=== PATIENT | male | born 1965 | race Caucasian/White ===

== ENCOUNTER 2018-01-02 14:23 | Inpatient (IN) | payer OTHER ==
[~2018-01-02] VITALS: Ht 175.3 cm; Wt 65.8 kg
--- NOTE | ~2018-01-02 | EKG ---
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1965 Requested By: Robin Partida Order Number: [id number] MD: Álvaro Riley Measurements Intervals [place] Rate: 111 P: 65 GA: 125 QRS: -13 QRSD: 80 T: QT: 385 QTc: 523 Interpretive Statements Sinus tachycardia Nonspecific ST and T wave abnormality Prolonged QT interval No previous ECG available for comparison Electronically Signed On 01-02-2018 17:27:57 CDT by Álvaro Riley [email or web address] <ELECTRONICALLY SIGNED> By: Álvaro Riley MD, LOCATED WITHIN [facility] 01/02/18 1727 1433 1433 Álvaro Riley MD, FACC /EPI
--- NOTE | ~2018-01-02 | HC ---
[facility] [place] [address] CONSULTATION Name: FIGUEROA RESENDIZ Room #: 350-P ADM IN M.R.#: [id number] Admission: 01/02/18 Attend Phys: Param Winters Discharge: Date of : 67 Report #: [id number] THIS REPORT FOR: //name// CC: [facility] physician/PCP Param Winters HISTORY OF PRESENT ILLNESS: The patient is a 52-year-old methamphetamine user who presents with increasing shortness of breath. He has a known cardiomyopathy and was diagnosed to [facility] about a month ago when he was admitted with what sounds like heart failure. He was placed on furosemide and, he thinks, lisinopril, although is not certain about dosing or more specifics than this. He presents now with increasing shortness of breath, orthopnea, and paroxysmal nocturnal dyspnea. On presentation, his proBNP was elevated at 11,000. Troponin was negative. He is an active methamphetamine user. ALLERGIES: No known drug allergies. MEDICATIONS: Include Lasix 40 mg a day, potassium 20 mEq daily, metoprolol succinate 25 mg daily. PAST MEDICAL HISTORY: Medical records have been reviewed and include a history of traumatic injury to the head and shoulder over a year ago, history of tobacco dependency, cardiomyopathy. SOCIAL HISTORY: He is an ongoing smoker. 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 He has a 38-apuh-jzga smoking history. FAMILY HISTORY: Mother has a history of myocardial infarction. REVIEW OF SYSTEMS: All systems negative except as that noted above. PHYSICAL EXAMINATION: GENERAL: Reveals a frail, cachectic appearing gentleman who is alert, he is talking in full sentences. VITAL SIGNS: Blood pressure is 101/66, heart rate of 103 and regular, he is afebrile, 5 feet 9 inches tall, 145 pounds. HEENT: There is neither xanthelasma, subcutaneous xanthomata, oral mucosal or digital cyanosis or kyphoscoliosis present. CHEST: Reveals diminished breath sounds at both bases. CARDIAC: Regular rate and rhythm with a laterally displaced point of maximal impulse, an S3 gallop is present. There is a 2/6 systolic murmur at the left sternal border. ABDOMEN: Soft and nontender. EXTREMITIES: Without cyanosis, clubbing or edema. Radial pulses are 2+. NEUROLOGIC: Alert with a nonfocal exam. LABORATORY DATA: Sodium is 139, potassium 4.7, creatinine 1.5, glucose 128. [facility] [address] [place] [address] CONSULTATION Name: FIGUEROA RESENDIZ Room #: 350-P [facility] IN M.R.#: [id number] Admission: 01/02/18 Attend Phys: Param Winters Discharge: Date of : 67 Report #: [id number] Troponin 0. Drug screen positive for methamphetamine. White count 6.6, hemoglobin 11, hematocrit 36, platelet count 252. Thyroid function studies are normal. IMPRESSION: 1. Epadx-mv-aipfnrs systolic heart failure, [place] Heart Association class 4. 2. 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 3. Tobacco dependency. RECOMMENDATIONS: 1. Intravenous Lasix. 2. Lisinopril, low-dose carvedilol as hemodynamics and volume status improve. 3. Discontinue methamphetamine. Unless there is a significant change in lifestyle his prognosis with this problem is very poor. I have discussed this with the patient in detail. Thank you for asking me to participate in his care. <ELECTRONICALLY SIGNED> By: Álvaro Riley MD, FACC 01/04/181399 11 2245 Álvaro Riley MD, FACC /nt
[2018-01-02 14:30] VITALS: BP 107/73
[2018-01-02 15:57] LABS: ABSOLUTE NEUTROPHILS 5.1 thou/uL (1.4-8.2); BASOPHILS 1.3 % (0.0-2.0); HEMATOCRIT 36.4 % (42.0-52.0); HEMOGLOBIN 11.9 gm/dL (14.0-18.0); MCH 25.5 pg (26.0-34.0); MCHC 32.5 g/dL (28.0-37.0); MCV 78.5 fL (80.0-100.0); MONOCYTES 6.9 % (1.0-8.0); PLATELET COUNT 252 thou/uL (150-400); POLYS 76.8 % (36.0-66.0); RBC 4.64 mil/uL (4.50-6.00); RDW 15.5 % (10.5-14.5); WBC 6.6 thou/uL (4.0-11.0)
[2018-01-02 16:10] LABS: CALCIUM 8.9 mg/dL (8.5-10.1); CREATININE 1.4 mg/dL (0.7-1.3); POTASSIUM 4.3 mmol/L (3.5-5.1)
[2018-01-02 16:19] LABS: TROPONIN-I 0.04 ng/mL (<0.06)
[2018-01-02 18:25] LABS: AMP/METHAMP POSITIVE (Negative); BARBITURATES Negative (Negative); BENZODIAZEPINES Negative (Negative); COCAINE Negative (Negative); METHADONE Negative (Negative); OPIATES Negative (Negative); PCP Negative (Negative)
[2018-01-02 19:14] VITALS: BP 113/80
[2018-01-02 19:45] VITALS: BP 113/85
[2018-01-02] MEDS ORDERED: LASIX 40 MG TAB40 M2 PO (23:15)
[2018-01-02] MEDS ORDERED: POTASSIUM20 PO (23:16)
[2018-01-02] MEDS ORDERED: TOPROL XL25 MG PO (23:17)
[2018-01-02 23:42] VITALS: BP 109/84
[2018-01-03 04:30] VITALS: BP 112/95
[2018-01-03 08:00] VITALS: BP 116/81
[2018-01-03 09:53] LABS: CALCIUM 9.3 mg/dL (8.5-10.1); CREATININE 1.5 mg/dL (0.7-1.3); POTASSIUM 4.7 mmol/L (3.5-5.1)
[2018-01-03 15:38] VITALS: BP 101/66
[2018-01-03 20:00] VITALS: BP 114/75
[2018-01-03 20:45] VITALS: BP 101/66
[2018-01-04 03:48] LABS: CREATININE 1.4 mg/dL (0.7-1.3); POTASSIUM 4.2 mmol/L (3.5-5.1)
[2018-01-04 04:00] VITALS: BP 100/62
[2018-01-04 08:06] VITALS: BP 109/72
[2018-01-04] MEDS ORDERED: SPIRONOLACTONE25 M1 PO (08:53)
[2018-01-04] MEDS ORDERED: LISINOPRIL2.5 MG PO (08:53)
[2018-01-04] MEDS ORDERED: LASIX 40 MG TAB40 M2 PO (08:54)
[2018-01-04] MEDS ORDERED: ASPIRIN325 PO (08:54)
[2018-01-04 11:12] VITALS: BP 109/72
== END 2018-01-04 16:36 | disposition home or self-care (01) | DRG 292 ==
LOC: EDSEX 14:23 → ER 14:23 → EROBS 18:18 → 3W 19:16
PROVIDERS: Emergency Medicine; Hospitalist; Nurse Practitioner
DX: I50.23 Acute on chronic systolic (congestive) heart failure (principal); N17.9 Acute kidney failure, unspecified; I42.9 Cardiomyopathy, unspecified; J44.9 Chronic obstructive pulmonary disease, unspecified; F17.210 Nicotine dependence, cigarettes, uncomplicated; F15.10 Other stimulant abuse, uncomplicated; Z79.899 Other long term (current) drug therapy; Z88.5 Allergy status to narcotic agent; Z82.49 Family history of ischemic heart disease and other diseases of the circulatory system
CPT/HCPCS: 10779

== ENCOUNTER 2018-04-19 17:29 | Emergency (ER) | payer OTHER ==
[~2018-04-19] VITALS: Ht 175.3 cm; Wt 53.5 kg
--- NOTE | ~2018-04-19 | EKG ---
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 : 1965 Requested By: Ramon Rojas Order Number: [id number] MD: Measurements Intervals [place] Rate: 109 P: 68 SC: 126 QRS: 12 QRSD: 94 T: 86 QT: 341 QTc: 460 Interpretive Statements Sinus tachycardia Multiform ventricular premature complexes Aberrant complex Left atrial enlargement RSR' in V1 or V2, probably normal variant Nonspecific T abnormalities, lateral leads Compared to ECG 04/16/2018 07:06:29 Ventricular premature complex(es) now present Aberrant conduction of supraventricular beat(s) now present Atrial abnormality now present RSR' in V1 or V2 now present T-wave abnormality now present Left-axis deviation no longer present ST (T wave) deviation no longer present [email or web address] By: [id number] Epiphany Epiphany, /CARI
[~2018-04-19 17:29] MED LIST: ASPIRIN325 PO; CARVEDILOL3.125 MG PO; LASIX 40 MG TAB40 M2 PO; LISINOPRIL2.5 MG PO; LOPRESSOR25 PO; POTASSIUM20 PO; SPIRONOLACTONE25 M1 PO; TOPROL XL25 MG PO; VITAMIN B-1100 M2 PO
[2018-04-19 17:56] LABS: HCO3 21.4 mmol/L (22.0-26.0); PCO2 32.3 mmHg (35.0-45.0); PO2 100.3 mmHg (80.0-100.0); pH 7.439 (7.360-7.450); sO2 97.8 % (92.0-98.0)
[2018-04-19 18:00] LABS: ABSOLUTE NEUTROPHILS 9.2 thou/uL (1.4-8.2); BASOPHILS 0.3 % (0.0-2.0); EOSINOPHILS 0.2 % (0.0-3.0); HEMATOCRIT 37.6 % (42.0-52.0); HEMOGLOBIN 11.8 gm/dL (14.0-18.0); LYMPHOCYTES 10.7 % (24.0-44.0); MCH 23.3 pg (26.0-34.0); MCHC 31.4 g/dL (28.0-37.0); MCV 74.2 fL (80.0-100.0); MONOCYTES 8.6 % (1.0-8.0); PLATELET COUNT 273 thou/uL (150-400); POLYS 80.2 % (36.0-66.0); RBC 5.06 mil/uL (4.50-6.00); RDW 18.5 % (10.5-14.5); WBC 11.5 thou/uL (4.0-11.0)
[2018-04-19 18:13] LABS: ANION GAP 9 mmol/L (7-16); BUN 46 mg/dL (7-18); CALCIUM 8.8 mg/dL (8.5-10.1); CHLORIDE 104 mmol/L (98-107); CO2 24 mmol/L (21-32); CREATININE 1.6 mg/dL (0.7-1.3); GLUCOSE 95 mg/dL (74-106); POTASSIUM 4.3 mmol/L (3.5-5.1); SODIUM 137 mmol/L (136-145)
[2018-04-19 18:22] LABS: ALBUMIN 2.9 g/dL (3.4-5.0); LIPASE 129 U/L (73-393); SGOT 99 U/L (15-37); SGPT 184 U/L (30-65); TOTAL BILIRUBIN 0.5 mg/dL (<0.1-1.0); TOTAL PROTEIN 6.5 g/dL (6.4-8.2); TROPONIN-I <0.06 ng/mL (<0.06)
[2018-04-19 19:07] LABS: ANISOCYTOSIS 1+; HYPOCHROMASIA 1+; MICROCYTES 1+
[2018-04-19 20:08] LABS: AMP/METHAMP Negative (Negative); BARBITURATES Negative (Negative); BENZODIAZEPINES Negative (Negative); COCAINE Negative (Negative); METHADONE Negative (Negative); OPIATES Negative (Negative); PCP Negative (Negative)
[2018-04-19 20:18] LABS: URINE BILIRUBIN NEGATIVE (Negative); URINE BLOOD NEGATIVE (Negative); URINE CLARITY CLEAR; URINE COLOR YELLOW; URINE GLUCOSE-RANDOM* NEGATIVE (Negative); URINE KETONES NEGATIVE (Negative); URINE LEUKOCYTES-REFLEX NEGATIVE (Negative); URINE NITRITE-REFLEX NEGATIVE (Negative); URINE PROTEIN (DIPSTICK) 1+ (Negative); URINE UROBILINOGEN 0.2 E.U./dl (0.2-1.0)
[2018-04-19] MEDS ORDERED: LOPERAMIDE 2 MG2 M1 PO (20:19)
[2018-04-19 20:27] LABS: BACTERIA-REFLEX None Seen /HPF (None Seen); CASTS None Seen /LPF (None Seen); SQUAMOUS None Seen /LPF (0-3); URINE RBC None Seen /HPF (0-2); URINE WBC-REFLEX 0-5 Rare /HPF (0-5)
[2018-04-19 20:28] LABS: CRYSTALS None Seen /LPF (None Seen)
== END 2018-04-19 20:31 | disposition home or self-care (01) ==
LOC: ER 17:29
PROVIDERS: Physician Assistant
DX: R10.31 Right lower quadrant pain (principal); R06.02 Shortness of breath; R00.0 Tachycardia, unspecified; F17.210 Nicotine dependence, cigarettes, uncomplicated; I11.0 Hypertensive heart disease with heart failure; I50.9 Heart failure, unspecified; J44.9 Chronic obstructive pulmonary disease, unspecified; Z87.442 Personal history of urinary calculi; Z88.5 Allergy status to narcotic agent